=== PATIENT | male | born 1945 | race Caucasian/White ===

== ENCOUNTER → 2017-08-30 | Outpatient (CLI) | payer OTHER ==
[~2017-08-30] MED LIST: ASC400 PO; EZET10TA41 PO; LEVO-366 PO; LISI20TA55 PO; PHEN37.585 PO
== END | disposition home or self-care (01) ==
LOC: C.RDSM 16:48
PROVIDERS: ATTEND Physical Medicine & Rehabilitation Sports Medicine
DX: M17.11 Unilateral primary osteoarthritis, right knee (principal)